=== PATIENT | female | born 1970 | race Caucasian/White ===

== ENCOUNTER 2017-02-24 19:51 | Emergency (ER) | payer MEDICAID ==
[2017-02-24 21:49] VITALS: BP 117/78
== END 2017-02-24 21:49 | disposition home or self-care (01) ==
LOC: ED 19:51
DX: T54.91XA Toxic effect of unspecified corrosive substance, accidental (unintentional), initial encounter (principal); H10.213 Acute toxic conjunctivitis, bilateral; Y92.89 Other specified places as the place of occurrence of the external cause

== ENCOUNTER 2018-03-12 17:05 | Emergency (ER) | payer MEDICAID ==
[~2018-03-12] VITALS: Ht 154.9 cm; Wt 72.1 kg
[2018-03-12 17:10] VITALS: BP 123/71; Ht 154.9 cm; Wt 72.1 kg
== END 2018-03-12 18:29 | disposition home or self-care (01) ==
LOC: ED 17:05
DX: K21.0 Gastro-esophageal reflux disease with esophagitis (principal); J98.01 Acute bronchospasm; K30 Functional dyspepsia
CPT/HCPCS: J7620